=== PATIENT | female | born 1945 | race Caucasian/White ===

== ENCOUNTER 2024-12-30 13:18 | Observation (INO) ==
--- NOTE | 2024-12-30 13:30 | ED.PDOC ---
General ED Provider: Dr. PATRIA LION, DO Chief Complaint: Syncope Stated Complaint: 79-year-old female denies any significant past medical history and a big mother stay brunch and was out for a walk in the sunshine 80 degrees approximately, about 15 minutes and became sweaty felt lightheaded and went to sit down. Family member went to go get a vehicle placed the patient in the vehicle and in the process she became unresponsive for approximately 60 seconds. Awoke on her own. Cannot remember the events leading up to her syncopized no prodrome other than feeling lightheaded but did have a little bit of shortness of breath. When she woke up that was gone she just feels very weak. The weakness is universal no localized weakness no difficulty with speech no change in vision. Fingerstick 108 Time Seen by Provider: 12/30/24 13:20 Mode of Arrival: Wheelchair Information Source: Patient and Family Exam Limitations: No limitations Nursing and Triage Documentation Reviewed and Agree: Yes What is Opioid Naive?: *Opioid Naive implies the patient is not already taking opioids or not chronically receiving opioids on a daily basis. *PRN dosing is not "usually" associated with tolerance. *Patients are at higher risk of over-sedation and aspiration. What is Opioid Tolerant?: *Opioid Tolerance implies less than the expected response to an opioid. *Acquired tolerance is defined by the patient taking 60mg of oral morphine daily (or equianalgesic dose of another opioid) for 1 week or more. *Often associated with chronic pain. *May take more than usual dose to achieve desired pain control. Review of Systems Review Of Systems Constitutional: Reports Diaphoresis and Weakness Eyes: Reports No symptoms; Denies Blindness, Blurred vision or Vision change Ears, Nose, Mouth, Throat: Reports No symptoms Respiratory: Reports Shortness of Breath; Denies Cough, Orthopnea or Wheezing Cardiac: Reports Lightheadedness and Syncope; Denies Chest pain, Edema, Irregular heart rate or Palpitations GI: Reports No symptoms : Reports No symptoms Musculoskeletal: Reports No symptoms Skin: Reports No symptoms Neurological: Reports No symptoms Endocrine: Reports No symptoms Hematologic/Lymphatic: Reports No symptoms All Other Systems: Reviewed and Negative Physical Exam Physical Exam Appearance: Reports Ill-appearing and No pain distress Ill-appearing: Mild Pain Distress: None Eyes: Reports RADHA, EOMI and Conjunctiva clear Neck: Supple Respiratory: Reports Airway patent, Breath sounds clear and Breath sounds equal Cardiovascular: Reports RRR, Pulses normal and No rub GI/: Reports Soft, Nontender and No masses Musculoskeletal: Reports Normal strength, ROM intact and No edema Skin: Reports Warm and Dry Neurological: Reports Sensation intact, Motor intact, Cranial nerves intact, Alert and Oriented Interpretation EKG Interpretation EKG Interpretation By: ED Physician (Twelve-lead EKG is read by me shortly after obtaining sinus rate of 83 with normal axis and intervals there is some motion artifact but otherwise no evidence of acute ischemia or infarct no STEMI) Time of EKG #1: 13:33 EKG Interpretation By: ED Physician (Repeat twelve-lead EKG as read by me shortly after obtaining sinus rate of 77 with normal axis and intervals no longer with any motion artifact some T wave flattening in the inferior and septal leads but otherwise no evidence of acute ischemia or infarct no STEMI) Time of EKG #2: 14:30 Rate: Normal Re-Evaluation Re-Evaluation Time of Re-Evaluation: 14:18 Additional Comments: Informed by nursing the patient has some mild nausea chest pressure will give Zofran repeat EKG Re-Evaluation Time of Re-Evaluation: 17:34 Status: Improved Vital Signs Stable: Yes Appearance: NAD Neuro: Alert and Oriented X3 CV: RRR Additional Comments: Patient's repeat troponin was negative, patient CT of the abdomen concerning for possible colitis CT of the chest did not show PE however it did show possible infectious process. That with the elevated lactate we will initiate treatment for community-acquired pneumonia. There was also some concern of four-chamber dilated cardiomyopathy on CT. Patient's troponin and BNP are negative this could be a remnant of patient's prior bilateral PE. I did discuss this case with the admitting provider [facility] Boykin who will accept the patient for observation plans to get echo in the morning. With the patient's advanced age I do believe admission at this point is appropriate During the patients stay in the Emergency Department, and after a physical exam focused on the patients chief complaint. I have concluded that the patients condition warrants inpatient admission/observation at this time. This decision was made in conjunction with testing done in the ED and after discussing the need for admission with the patient and any family present. This decision was made in conjunction with any testing done, physical exam and information provided by the patient and any family present. I took into consideration discharge but feel that either the patients condition, social supports, access to aftercare, and/or safety justify admission at this time. I have discussed this case with the admitting physician Care was assumed by admitting provider at the time the admission request was placed. I was available for emergencies after that point or if specifically identified here: none This chart was completed using voice recognition dictation software. Please excuse any errors of boot repairer including grammatical, punctuation and spelling errors. Please contact me with any questions regarding this chart Critical Care Note Critical Care Note Total Critical Care Time (mins): 45 Comments: I was called to the bedside for urgent evaluation of the patient for an apparent life-threatening event. I arrived to find the patient post syncope During my initial evaluation I found the patient to be critically Ill and in need of my immediate attention to prevent further deterioration of their condition More than one body system was considered at risk with todays visit. The following are the primary systems identified: Cardiac, metabolic, GI, infectious During the patients ED visit I repeated re-evaluated the patient and their clinical condition reviewed laboratory testing and radiology images and intervening when needed. As a result of the patients clinical condition and presenting problem I arranged for admission for further workup The total amount of my Critical Care time during the patients course in the ED was a minimum of 45 minutes, this excluded any time spent on other services or procedures Course Course 12/30/24 13:58 12/30/24 13:58 Orders, Labs, Meds: Lab Review 12/30/24 12/30/24 12/30/24 13:58 16:00 16:51 WBC 8.46 RBC 3.81 L Hgb 11.4 L Hct 36.5 L MCV 95.8 MCH 29.9 MCHC 31.2 L RDW Coeff of Savita 13.7 Plt Count 228 Immature Gran % (Auto) 0.2 Neut % (Auto) 32.7 L Lymph % (Auto) 56.3 H [place] % (Auto) 8.2 Eos % (Auto) 2.0 Baso % (Auto) 0.6 Neut # (Auto) 2.8 Lymph # (Auto) 4.8 H [place] # (Auto) 0.7 Eos # (Auto) 0.2 Baso # (Auto) 0.1 Immature Gran # (Auto) 0.0 Sodium 143.1 Potassium 3.73 Chloride 107.1 H Carbon Dioxide 21.9 L Anion Gap 17.83 BUN 13.0 Creatinine 0.98 Estimated GFR (MDRD) 54.00 BUN/Creatinine Ratio 13.26 Glucose 108.8 H Lactic Acid 3.12 H Calcium 9.30 Total Bilirubin 0.45 AST 36.2 H ALT 24.1 Alkaline Phosphatase 77.3 Troponin I < 0.012 < 0.012 NT-Pro-B Natriuret Pep 290 Total Protein 7.02 Albumin 3.80 Globulin 3.22 Albumin/Globulin Ratio 1.18 D-Dimer 298.10 Urine Color Yellow Urine Clarity Clear Urine pH 7.0 Ur Specific [place] 1.015 Urine Protein Negative Urine Glucose (UA) Negative Urine Ketones Negative Urine Blood Negative Urine Nitrite Negative Urine Bilirubin Negative Urine Urobilinogen 0.2 Ur Leukocyte Esterase Negative SARS CoV-2 RNA Rapid SUSAN 12/30/24 17:03 WBC RBC Hgb Hct MCV MCH MCHC RDW Coeff of Savita Plt Count Immature Gran % (Auto) Neut % (Auto) Lymph % (Auto) [place] % (Auto) Eos % (Auto) Baso % (Auto) Neut # (Auto) Lymph # (Auto) [place] # (Auto) Eos # (Auto) Baso # (Auto) Immature Gran # (Auto) Sodium Potassium Chloride Carbon Dioxide Anion Gap BUN Creatinine Estimated GFR (MDRD) BUN/Creatinine Ratio Glucose Lactic Acid Calcium Total Bilirubin AST ALT Alkaline Phosphatase Troponin I NT-Pro-B Natriuret Pep Total Protein Albumin Globulin Albumin/Globulin Ratio D-Dimer Urine Color Urine Clarity Urine pH Ur Specific [place] Urine Protein Urine Glucose (UA) Urine Ketones Urine Blood Urine Nitrite Urine Bilirubin Urine Urobilinogen Ur Leukocyte Esterase SARS CoV-2 RNA Rapid SUSAN Negative Orders Category Date Time Status PLACE PATIENT OBSERVATION .TO [facility] (MONITORED BED ADMISSION 12/30/24 17:21 Active ) PLACE PATIENT OBSERVATION .TO MEDSUR[facility] (MONITORED BED ADMISSION 12/30/24 17:31 Active ) ECHOCARDIOGRAM 2D-M MODE Routine CARDIO 12/30/24 17:21 Ordered EKG-(ED ONLY) Stat CARDIO 12/30/24 13:25 Completed EKG-(ED ONLY) Stat CARDIO 12/30/24 14:18 Completed ACTIVITY .Up With Assistance CARE 12/30/24 17:21 Active GIVE HS SNACK 2100 CARE 12/30/24 17:22 Active INTAKE & OUTPUT Q8HR CARE 12/30/24 17:21 Active NPO REMINDER: IMAGING ONCE CARE 12/30/24 14:39 Completed ORTHOSTATIC VITAL SIGNS ONCE CARE 12/30/24 18:00 Active TELEMETRY MONITORING TELE CARE 12/30/24 17:21 Active TELEMETRY MONITORING TELE CARE 12/30/24 17:31 Active VITAL SIGNS Q4HR CARE 12/30/24 17:22 Active CLEAR LIQUID DIET DIETARY 12/30/24 Dinner Ordered HS SNACK DIETARY 12/30/24 Dinner Ordered Blood Sugar [ED ACCUCHECK ASSESSMENT] .ONCE EMERGENCY 12/30/24 13:25 Active CBC W/ AUTO DIFF DAILY@0600 LAB 12/31/24 06:00 Ordered CBC W/ AUTO DIFF DAILY@0600 LAB 01/01/25 06:00 Ordered CBC W/ AUTO DIFF Stat LAB 12/30/24 13:58 Completed CMP [COMPREHENSIVE METABOLIC PANEL] Stat LAB 12/30/24 13:58 Completed COMPREHENSIVE METABOLIC PANEL DAILY@0600 LAB 12/31/24 06:00 Ordered COMPREHENSIVE METABOLIC PANEL DAILY@0600 LAB 01/01/25 06:00 Ordered COVID [SARS COV-2 RNA RAPID SUSAN] Stat LAB 12/30/24 17:03 Completed D-DIMER Stat LAB 12/30/24 13:58 Completed LACTIC ACID Stat LAB 12/30/24 13:58 Completed LACTIC ACID Stat LAB 12/30/24 17:14 Ordered PROBNP ED [NT-PROBNP(ED)] Stat LAB 12/30/24 13:58 Completed TROPONIN I Stat LAB 12/30/24 13:58 Completed TROPONIN I Stat LAB 12/30/24 16:51 Completed TROPONIN I Timed LAB 12/30/24 20:00 Ordered UA [URINALYSIS C & S IF INDICATED] Stat LAB 12/30/24 16:00 Completed Acetaminophen [Tylenol] Meds 12/30/24 17:21 Ordered 650 mg PO Q4H PRN Azithromycin [Zithromax] Meds 12/30/24 17:01 Discontinued 500 mg PO ONCE ONE Ceftriaxone 1 gm Vial [Rocephin 1 gm Vial] Meds 12/30/24 17:01 Discontinued 1 gm IVP ONCE ONE Diphenhydramine Inj [Benadryl] Meds 12/30/24 15:24 Discontinued 25 mg IVP ONCE STA Iodixanol [Visipaque 320 mg/ml 100Ml] Meds 12/30/24 14:55 Discontinued 100 ml IVP ONCE ONE Metoclopramide HCl [Reglan] Meds 12/30/24 15:24 Discontinued 10 mg IVP ONCE STA Metoclopramide HCl [Reglan] Meds 12/30/24 17:21 Ordered 5 mg IVP Q6H PRN Ondansetron HCl/Pf [Zofran Sdv] Meds 12/30/24 14:18 Discontinued 4 mg IVP ONCE STA Ondansetron HCl/Pf [Zofran Sdv] Meds 12/30/24 17:21 Ordered 4 mg IVP Q6H PRN Pantoprazole Sodium [Protonix] Meds 12/31/24 09:00 Ordered 40 mg IVP DAILY Sodium Chloride 0.9% [Sodium Chloride] 1,000 ml Meds 12/30/24 17:30 Ordered IV 100 mls/hr Sodium Chloride 0.9% [Sodium Chloride] 1,000 ml Meds 12/30/24 13:25 Discontinued IV BOLUS RESUSCITATION STATUS Routine OTHERS 12/30/24 17:31 Ordered CHEST, 1V AP ONLY Stat RADS 12/30/24 13:[address] ABDOMEN/PELVIS W CONTRAST Stat RADS 12/30/24 14:39 Completed CTA CHEST PE PROTOCOL Stat RADS 12/30/24 14:39 Completed Medications Generic Name Dose Route Start Last Admin Trade Name Freq PRN Reason Stop Dose Admin Acetaminophen 650 mg 12/30/24 17:21 Acetaminophen 325 Mg Tablet PO Q4H PRN Mild Pain Sodium Chloride 1,000 mls @ 100 mls/hr 12/30/24 17:30 Sodium Chloride IV .Q10H NANCY Metoclopramide HCl 5 mg 12/30/24 17:21 Metoclopramide Hcl 10 Mg/2 Ml IVP Q6H PRN Nausea / Vomiting Ondansetron HCl 4 mg 12/30/24 17:21 Ondansetron Hcl/Pf 4 Mg/2 Ml Sdv IVP Q6H PRN Nausea / Vomiting Pantoprazole Sodium 40 mg 12/31/24 09:00 Pantoprazole Sodium 40 Mg Vial IVP DAILY NANCY Discontinued Medications Generic Name Dose Route Start Last Admin Trade Name Freq PRN Reason Stop Dose Admin Azithromycin 500 mg 12/30/24 17:01 12/30/24 17:15 Azithromycin 250 Mg Tablet PO 12/30/24 17:02 500 mg ONCE ONE Administration Ceftriaxone Sodium 1 gm 12/30/24 17:01 12/30/24 17:16 Ceftriaxone 1 Gm Vial IVP 12/30/24 17:02 1 gm ONCE ONE Administration Diphenhydramine HCl 25 mg 12/30/24 15:24 12/30/24 15:39 Diphenhydramine Inj 50 Mg/Ml Vial IVP 12/30/24 15:25 25 mg ONCE STA Administration Sodium Chloride 1,000 mls @ 1,000 mls/hr 12/30/24 13:25 12/30/24 17:13 Sodium Chloride IV 12/30/24 14:24 Infused BOLUS ONE Infusion Iodixanol 100 ml 12/30/24 14:55 12/30/24 14:56 Iodixanol 320 Mg/Ml 100ml IVP 12/30/24 14:56 100 ml ONCE ONE Administration Metoclopramide HCl 10 mg 12/30/24 15:24 12/30/24 15:39 Metoclopramide Hcl 10 Mg/2 Ml IVP 12/30/24 15:25 10 mg ONCE STA Administration Ondansetron HCl 4 mg 12/30/24 14:18 12/30/24 14:24 Ondansetron Hcl/Pf 4 Mg/2 Ml Sdv IVP 12/30/24 14:19 4 mg ONCE STA Administration Shortly after interviewing and examining the patient, treatment was initiated. Orders were placed for appropriate testing and treatment specific to my findings, appropriate guidelines and the patients complaint (please see physician order section of this chart). Based on the patients chief complaint, and information gathered so far, the following diagnosis were considered. This list is not exhaustive. Intoxication, infectious causes such as UTI, Pneumonia, or BLIND AIDE infection. Metabolic; such as hyper/hypoglycemia, electrolyte abnormalities, hepatic encephalopathy. BLIND AIDE such as intracranial bleed, seizure, delirium, or CVA. Cardiac; AMI, hypotension, cardiac failure. The patient had a syncopal episode. In most cases the reasons are [id number], but this is not true for all patients, To evaluate the patients risk of more concerning causes of syncope I considered several things. Below are the items I took into considerations and some of the clinical tools I used The [place] Syncope Rule (SFSR) is a simple tool for evaluating the risk of adverse outcomes in patient who present with fainting or syncope. Any positive response warrants further evaluation C - History of congestive heart failure H - Hematocrit < 30% E - Abnormal ECG S - Shortness of breath S - Triage systolic blood pressure < 90 The most concerning cause of syncope is cardiovascular syncope. Below are Risk Factors for Cardiovascular Syncope Extremes of age Active Coronary disease or syncope accompanied by chest pain, palpitations or shortness of breath Syncope during exertional activity or exercise An abnormal electrocardiogram (a common test to check for abnormal heart rhythms) including prolonged QT syndrome, WPW [place] Syndrome, joaquín or tachyarrhythmias, all of which were considered when reviewing the patients EKG with todays visit Vital Signs: Temp Pulse Resp BP Pulse Ox 12/30/24 13:25 97.6 F 82 20 101/54 L 97 Discharge Plan Discharge Patient Disposition: PLACED OBSERVATION Discharge Problem: Syncope, Pneumonia Did you review [place] [employer]PECTOR for ALL controlled substances?: Not Applicable ED Provider: PATRIA LION
[2024-12-30 14:01] LABS: BASOPHILS # (AUTO) 0.1 K/uL (0-0.2); BASOPHILS % (AUTO) 0.6 % (0.0-3.0); EOSINOPHILS # (AUTO) 0.2 K/ul (0.0-0.7); HEMATOCRIT 36.5 % (37.0-47.0); HEMOGLOBIN 11.4 g/dl (12.0-16.0); IMMATURE GRANULOCYTE % (AUTO) 0.2 % (0.0-5.0); LYMPHOCYTES # (AUTO) 4.8 K/uL (0.60-3.4); LYMPHOCYTES % (AUTO) 56.3 (10.0-50.0); MEAN CORPUSCULAR HEMOGLOBIN 29.9 pg (27.0-31.0); MEAN CORPUSCULAR HGB CONC 31.2 (31.8-35.4); MEAN CORPUSCULAR VOLUME 95.8 fl (81.0-99.0); MONOCYTES # (AUTO) 0.7 K/uL (0.4-2.0); MONOCYTES % (AUTO) 8.2 (0-10); NEUTROPHILS # (AUTO) 2.8 K/ul (2.0-6.9); NEUTROPHILS % (AUTO) 32.7 % (42.2-75.2); PLATELET COUNT 228 10^3/uL (140-440); RDW COEFFICIENT OF VARIATION 13.7 % (11.6-14.8); RED BLOOD COUNT 3.81 10^6/ul (4.20-5.40); WHITE BLOOD COUNT 8.46 K/ul (4.6-10.2)
[2024-12-30 14:12] LABS: ALANINE AMINOTRANSFERASE 24.1 U/L (0-35); ALKALINE PHOSPHATASE 77.3 U/L (53-141); ASPARTATE AMINO TRANSFERASE 36.2 U/L (14-36); BILIRUBIN,TOTAL 0.45 mg/dL (0.2-1.3); CARBON DIOXIDE 21.9 mmol/L (22-30.0); CHLORIDE 107.1 mmol/L (98-107); CREATININE 0.98 mg/dL (0.60-1.30); GLUCOSE 108.8 mg/dL (74-106); POTASSIUM 3.73 mmol/L (3.5-5.1); SODIUM 143.1 mmol/L (134.5-145); TOTAL PROTEIN 7.02 g/dL (6.3-8.2)
[2024-12-30] MEDS: SODIUM CHLORIDE 1,000 ML IV ONE (14:15)
[2024-12-30] MEDS: ZOFRAN SDV IVP STA (14:24)
[2024-12-30 14:29] LABS: TROPONIN I < 0.012 ng/ml (0.0000-0.120)
--- NOTE | 2024-12-30 14:49 | DI ---
EXAM: CHEST RADIOGRAPH (1 VIEW) TECHNIQUE: Frontal Chest Radiograph. HISTORY: Syncope. COMPARISON: None FINDINGS: Lines, Tubes, Devices: None Lungs and Pleura: No focal consolidation. No pleural effusion. No pneumothorax. No pulmonary edema . Multiple calcified granulomas. Biapical pleural parenchymal scarring, left greater than right. Cardiomediastinum: Normal cardiomediastinal silhouette. No aortic calcifications. Bones/Soft Tissues: No acute osseous abnormality. No soft tissue abnormality. Upper Abdomen: Within normal limits. IMPRESSION: No acute radiographic abnormality.
[2024-12-30] MEDS: VISIPAQUE 320 MG/ML 100ML IVP ONE (14:56)
[2024-12-30] MEDS: BENADRYL IVP STA (15:39)
[2024-12-30] MEDS: REGLAN IVP STA (15:39)
[2024-12-30 16:10] LABS: BILIRUBIN,URINE Negative (NEGATIVE); CLARITY,URINE Clear (CLEAR); COLOR,URINE Yellow (YELLOW); GLUCOSE, URINE (UA) Negative (NEGATIVE); KETONES,URINE Negative (NEGATIVE); LEUKOCYTE ESTERASE ,URINE Negative (NEGATIVE); NITRITE,URINE Negative (NEGATIVE); PROTEIN,URINE Negative (NEGATIVE); URINE, BLOOD Negative (NEGATIVE); UROBILINOGEN,URINE 0.2 (0.2)
--- NOTE | 2024-12-30 16:37 | CT ---
EXAM: CT ABDOMEN PELVIS WITH CONTRAST HISTORY: Syncope, elevated, lactic gases COMPARISON: None. TECHNIQUE: Serial axial images of the abdomen pelvis were performed after Omnipaque IV contrast was administered. FINDINGS: Please see report from CTA chest obtained at the same time for description of findings in the lower c hest. Atherosclerotic plaque in the abdominal aorta and branches. The superior mesenteric artery is patent . The celiac artery is patent. The renal arteries are patent. The inferior mesenteric artery is pa tent. No acute process involving the liver, pancreas or spleen. No hydronephrosis. Simple right renal cyst. The adrenal glands are normal. There is question of mild wall thickening versus under distension at the gastroduodenal junction. Di verticulosis. No findings of acute diverticulitis. Suspected under distension of the proximal colon . No dilated loops of small bowel. The appendix is not identified. No pneumatosis. No portal venou s gas or mesenteric venous gas. No acute process in the pelvis. Question of bladder prolapse or ureterocele. Degenerative changes to the spine, pelvis and hips IMPRESSION: Question of wall thickening at the gastroduodenal junction versus under distension. Correlate with e ndoscopy as warranted. Suspected under distension of the proximal colon versus colitis. Question of ureterocele or bladder prolapse. Clinical follow-up. Please see above description and additional findings. All CT scans are performed using dose optimization techniques as appropriate to the performed exam an d include at least one of the following: Automated exposure control, adjustment of the mA and/or kV according t o size, and the use of iterative reconstruction technique.
--- NOTE | 2024-12-30 16:49 | CT ---
EXAM: CHEST CTA WITH CONTRAST (PULMONARY ARTERY) HISTORY: Syncope. History of pulmonary embolism. COMPARISON: Chest radiograph 12/30/2024. TECHNIQUE: CTA acquisition of the chest from the thoracic inlet to the upper abdomen following IV con trast administration. IV Contrast: Yes. 3D/MIP/VR images: Provided. FINDINGS: PULMONARY ARTERY: The submitted images are limited by patient respiratory motion artifact and Cedar beam hardening artifa ct from contrast in the superior vena cava. There is misregistration artifact involve the pulmonary a rteries. No discrete intraluminal filling defect within the main pulmonary artery or most proximal po rtions of the right and left pulmonary arteries. No definite filling defects along the lobar/interlob ar branches. Limited assessment of the more peripheral (segmental/subsegmental) branches due to motio n artifact without definite filling defect. No abnormal widening of the main pulmonary artery. Ratio of right ventricular diameter to left ventricular diameter is greater than 1.0 and correlation for si gns of right-sided heart insufficiency is recommended. No definite evidence of acute right ventricula r strain. LINES/DEVICES: None. HEART: Moderate cardiomegaly with 4 chamber enlargement though with predominant right-sided cardiac e nlargement. Minimal extension of contrast into the inferior vena cava could be related to the strengt h to the injection though correlation for signs of right-sided heart insufficiency is recommended. Ec hocardiogram can be considered as clinically warranted. No significant pericardial fluid or thickenin g. THORACIC AORTA: Limited assessment due to timing of contrast. Normal in caliber. Moderate vascular calcifications. LYMPH NODES: Calcified mediastinal and left hilar lymph nodes related to old granulomatous disease. A dditional subcentimeter lymph nodes. MEDIASTINUM: No mass, fluid collection or pneumomediastinum. Mild distention of the esophagus with fl uid with air fluid level approximately. Moderate distention of the stomach with fluid and ingested ma terial. PLEURA: No pleural effusion or abnormal pleural thickening. No pneumothorax. AIRWAYS: Opacification of right lower lobe bronchi may related to mucous plugging or secretions. Mild bronchial wall thickening concerning for sequela of bronchitis. LUNGS: Emphysematous changes of the lungs. Mild dependent atelectasis. Groundglass opacities with mos aic attenuation may be related to sequela of small vessel or small airway disease. Dense consolidatio n measuring 4.9 x 4.6 x 1. 7 cm in the left lung apex with adjacent bronchiectasis represent scarring at that level with pleural calcifications. Underlying neoplastic process is not entirely excluded on this study. Calcified granulomas largest at the level of the left upper lobe /lingula. THYROID: Grossly unremarkable. CHEST WALL: Grossly unremarkable. BONES: Degenerative changes of the spine. No acute compression fracture. There is diffuse demineraliz ation. Chronic pain deformity of the body of the stomach favors sequela of an old fracture. No adjace nt soft tissue swelling. Hypertrophic degenerative changes of the sternoclavicular joints bilaterally . UPPER ABDOMEN: Fluid distention of the stomach and distal esophagus. Questionable wall thickening jose r ng the proximal duodenum. Dedicated CT imaging of the abdomen and pelvis was performed and that repor t will be dictated separately. IMPRESSION: No definite evidence of an acute pulmonary embolism. Technically limited study due to motion artifact as detailed above. No abnormal dilation of the main pulmonary artery. Cardiomegaly with 4 chamber enlargement though with predominant right-sided enlargement. Abnormal rat io of right ventricular diameter to left ventricular diameter and correlation for signs of right-side d heart insufficiency is recommended. No definite evidence of acute right ventricular strain. Conside r echocardiogram as clinically warranted. Mosaic attenuation of the lungs could be seen in the setting of small vessel or small airway disease. Mild dependent atelectasis bilaterally. Dense consolidation and possible scarring with soft tissue thickening and bronchiectasis in the left lung apex. Overlying pleural calcifications. Underlying neoplastic process is not excluded on the bas is of this study and correlation with any prior imaging is recommended. This can be further assessed with PET CT. Bronchitis. Opacified bronchi in the lower lobes may related to secretions/mucous plugging. Old granulomatous disease. Demineralization. Chronic deformity of the sternum without acute osseous injury at that site. Degener ative changes. Mild distention of the esophagus with fluid with moderate distention of the stomach. Question of some wall thickening along the proximal duodenum. A clinically for signs of gastritis/esophagitis or duod enitis. Please see the separately dictated CT of the abdomen and pelvis report. Please see the separately All CT scans are performed using dose optimization techniques as appropriate to the performed exam an d include at least one of the following: Automated exposure control, adjustment of the mA and/or kV according t o size, and the use of iterative reconstruction technique.
[2024-12-30] MEDS: ZITHROMAX PO ONE (17:15)
[2024-12-30] MEDS: ROCEPHIN 1 GM VIAL IVP ONE (17:16)
[2024-12-30 17:21] LABS: SARS COV-2 RNA RAPID NAAT NEGATIVE (NEGATIVE)
[2024-12-30] MEDS ORDERED: ZOFRAN SDV IVP PRN (17:21)
[2024-12-30] MEDS ORDERED: TYLENOL PO PRN (17:21)
[2024-12-30] MEDS ORDERED: REGLAN IVP PRN (17:21)
[2024-12-30] MEDS: SODIUM CHLORIDE 1,000 ML IV SCH (18:35)
[2024-12-30 18:38] VITALS: BMI 28.0
[2024-12-30] MEDS: WELCHOL PO SCH (20:43)
[2024-12-30 20:56] VITALS: RESP 16
[2024-12-30] MEDS: XARELTO PO SCH (21:01)
[2024-12-31 05:38] LABS: BASOPHILS % (AUTO) 0.4 % (0.0-3.0); EOSINOPHILS # (AUTO) 0.2 K/ul (0.0-0.7); EOSINOPHILS % (AUTO) 2.1 % (0.0-7.0); HEMATOCRIT 33.5 % (37.0-47.0); HEMOGLOBIN 10.2 g/dl (12.0-16.0); IMMATURE GRANULOCYTE % (AUTO) 0.3 % (0.0-5.0); LYMPHOCYTES # (AUTO) 2.7 K/uL (0.60-3.4); LYMPHOCYTES % (AUTO) 35.5 (10.0-50.0); MEAN CORPUSCULAR HEMOGLOBIN 29.7 pg (27.0-31.0); MEAN CORPUSCULAR HGB CONC 30.4 (31.8-35.4); MEAN CORPUSCULAR VOLUME 97.4 fl (81.0-99.0); MONOCYTES # (AUTO) 0.6 K/uL (0.4-2.0); MONOCYTES % (AUTO) 8.3 (0-10); NEUTROPHILS % (AUTO) 53.4 % (42.2-75.2); PLATELET COUNT 204 10^3/uL (140-440); RDW COEFFICIENT OF VARIATION 13.6 % (11.6-14.8); RED BLOOD COUNT 3.44 10^6/ul (4.20-5.40); WHITE BLOOD COUNT 7.47 K/ul (4.6-10.2)
[2024-12-31 05:53] LABS: ALANINE AMINOTRANSFERASE 21.1 U/L (0-35); ALBUMIN 3.11 g/dL (3.5-5.0); ALKALINE PHOSPHATASE 67.5 U/L (53-141); BILIRUBIN,TOTAL 0.3 mg/dL (0.2-1.3); BLOOD UREA NITROGEN 9.9 mg/dL (7-17); CALCIUM 8.3 mg/dL (8.4-10.2); CARBON DIOXIDE 28.7 mmol/L (22-30.0); CHLORIDE 109.8 mmol/L (98-107); CREATININE 0.8 mg/dL (0.60-1.30); POTASSIUM 4.05 mmol/L (3.5-5.1); TOTAL PROTEIN 6.19 g/dL (6.3-8.2)
[2024-12-31] MEDS: PROTONIX IVP SCH (08:26)
[2024-12-31] MEDS ORDERED: XARELTO PO SCH (09:00)
[2024-12-31 10:34] VITALS: BP 134/72; PULSE 68; TEMP 97.5
--- NOTE | 2024-12-31 12:32 | PCM.SS ---
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 Patient states she was celebrating Mother's Day with a nice lunch with her family. She did admit to having one mariana. She states they went for a walk since it was a beautiful day out. She felt hot and nauseated. She felt the need to sit down and rest. A family member went and retrieved the truck. They helped her inside. Once inside, she passed out. Son at bedside state s she was "out cold" for about a minute and a half. She then came to on her own. She was oriented and realized they were driving to the ER. She recalls these events. No seizure like activity. In the ER, work up overall negative. CTA done showing no PE. Trops negative. EKG unremarkable. Orthostats negative. Labs unremarkable other than lactic acid mildly high which improved following fluids. Admitted to med surg. Today she is feeling well. Denies any deficits. No pre syncopal episodes. Vitals stable. Has been on tele overnight. Echo today overall unremarkable per Dr. Zina Walker. We discussed her CTA findings of the right apex consolidation/soft tissue thickening. Seems less likely pneumonia given normal wbc count, no fever, and no respiratory symptoms. Advised her to have close f/u with pcp for further investigation to r/o worrisome etiology. Also her CT abd/pelvis showed questionable colitis. Patient denies abd pain, fever, diarrhea. We discussed findings supportive of gastritis, she states she does often have acid reflux and takes pepcid. We discussed adding prilosec, nexium, etc if needed for better symptom control. Overall patient has had a negative work up related to her syncopal event, could have been vasovagal related. Will send on 1 week holter to r/o arrhythmia not caught on tele here, f/u with pcp. PMFSH Medical History History of breast cancer Z85.3 - Personal history of malignant neoplasm of breast (ICD-10) Hyperlipidemia E78.5 - Hyperlipidemia, unspecified (ICD-10) DVT (deep venous thrombosis) I82.409 - Acute embolism and thrombosis of unspecified deep veins of unspecified lower extremity (ICD-10) Pulmonary embolism I26.99 - Other pulmonary embolism without acute cor pulmonale (ICD-10) Social History Smoking and tobacco status: Never smoker Medications Mecications: Medications at Discharge (Home Meds & RX) colesevelam 625 mg tablet 625 mg PO BID 12/30/24 rivaroxaban 15 mg tablet (Xarelto) 15 mg PO DAILY 12/30/24 Allergies Allergies Allergy/AdvReac Type Severity Reaction Status Date / Time Sulfa (Sulfonamide AdvReac Rash Verified 12/30/24 13:32 Antibiotics) Review of Systems Constitutional: Denies Fever or Weakness Head: Reports Normocephalic and Atraumatic Cardiovascular: Reports Syncope; Denies Chest pain, Edema or Palpitations Respiratory: Denies Cough, Shortness of air or Wheeze Gastrointestinal: Reports Nausea; Denies Vomiting, Diarrhea, Abdominal pain or Melena Genitourinary: Denies Dysuria or Frequency Neurological: Reports Syncope and Loss of Conciousness; Denies Headache, Dizziness or Weakness Physical Examination Appearance: Positive Well-appearing, Well-nourished, No Apparent Distress and Alert and Oriented x3 Head: Positive Normocephalic and Atraumatic Neck: Positive Supple and Trachea Midline Heart: Positive RRR Respiratory: Positive Breath Sounds Clear, Bilaterally and Respirations Nonlabored; Negative Crackles, Rhonchi, Wheezes or Retractions GI/: Positive Soft, Nontender, Bowel sounds normal and No Distention Extremities: Positive Pedal Pulses Palpable Bilaterally; Negative Edema Neurological: Positive Cranial nerves intact, Motor Intact, Alert and Oriented Psychiatric: Positive Normal Judgement, Normal Insight, Affect Appropriate and Mood Appropriate Vital Signs (Last 4 Hours) Vital Signs Last 4 Hours: Vital Signs: Last 4 Hours 12/31/24 09:00 12/31/24 10:00 12/31/24 10:00 Temperature 97.5 F L Temperature Source Temporal Artery Scan Pulse Rate 68 Respiratory Rate 16 Blood Pressure 134/72 Blood Pressure Mean 92 Blood Pressure Location Left Arm Blood Pressure Position Supine O2 Sat by Pulse Oximetry 97 Oxygen Delivery Method Room Air Room Air Room Air Labs This Visit Labs This Visit: Labs This Visit 12/30/24 12/30/24 12/30/24 13:58 16:00 16:51 WBC 8.46 RBC 3.81 L Hgb 11.4 L Hct 36.5 L MCV 95.8 MCH 29.9 MCHC 31.2 L RDW Coeff of Savita 13.7 Plt Count 228 Immature Gran % (Auto) 0.2 Neut % (Auto) 32.7 L Lymph % (Auto) 56.3 H [place] % (Auto) 8.2 Eos % (Auto) 2.0 Baso % (Auto) 0.6 Neut # (Auto) 2.8 Lymph # (Auto) 4.8 H [place] # (Auto) 0.7 Eos # (Auto) 0.2 Baso # (Auto) 0.1 Immature Gran # (Auto) 0.0 Sodium 143.1 Potassium 3.73 Chloride 107.1 H Carbon Dioxide 21.9 L Anion Gap 17.83 BUN 13.0 Creatinine 0.98 Estimated GFR (MDRD) 54.00 BUN/Creatinine Ratio 13.26 Glucose 108.8 H Lactic Acid 3.12 H Calcium 9.30 Total Bilirubin 0.45 AST 36.2 H ALT 24.1 Alkaline Phosphatase 77.3 Troponin I < 0.012 < 0.012 NT-Pro-B Natriuret Pep 290 Total Protein 7.02 Albumin 3.80 Globulin 3.22 Albumin/Globulin Ratio 1.18 D-Dimer 298.10 Urine Color Yellow Urine Clarity Clear Urine pH 7.0 Ur Specific [place] 1.015 Urine Protein Negative Urine Glucose (UA) Negative Urine Ketones Negative Urine Blood Negative Urine Nitrite Negative Urine Bilirubin Negative Urine Urobilinogen 0.2 Ur Leukocyte Esterase Negative SARS CoV-2 RNA Rapid SUSAN 12/30/24 12/30/24 12/30/24 17:03 17:36 20:11 WBC RBC Hgb Hct MCV MCH MCHC RDW Coeff of Savita Plt Count Immature Gran % (Auto) Neut % (Auto) Lymph % (Auto) [place] % (Auto) Eos % (Auto) Baso % (Auto) Neut # (Auto) Lymph # (Auto) [place] # (Auto) Eos # (Auto) Baso # (Auto) Immature Gran # (Auto) Sodium Potassium Chloride Carbon Dioxide Anion Gap BUN Creatinine Estimated GFR (MDRD) BUN/Creatinine Ratio Glucose Lactic Acid 2.04 D Calcium Total Bilirubin AST ALT Alkaline Phosphatase Troponin I < 0.012 NT-Pro-B Natriuret Pep Total Protein Albumin Globulin Albumin/Globulin Ratio D-Dimer Urine Color Urine Clarity Urine pH Ur Specific [place] Urine Protein Urine Glucose (UA) Urine Ketones Urine Blood Urine Nitrite Urine Bilirubin Urine Urobilinogen Ur Leukocyte Esterase SARS CoV-2 RNA Rapid SUSAN Negative 12/31/24 05:26 WBC 7.47 RBC 3.44 L Hgb 10.2 L Hct 33.5 L MCV 97.4 MCH 29.7 MCHC 30.4 L RDW Coeff of Savita 13.6 Plt Count 204 Immature Gran % (Auto) 0.3 Neut % (Auto) 53.4 Lymph % (Auto) 35.5 [place] % (Auto) 8.3 Eos % (Auto) 2.1 Baso % (Auto) 0.4 Neut # (Auto) 4.0 Lymph # (Auto) 2.7 [place] # (Auto) 0.6 Eos # (Auto) 0.2 Baso # (Auto) 0.0 Immature Gran # (Auto) 0.0 Sodium 145.0 Potassium 4.05 Chloride 109.8 H Carbon Dioxide 28.7 Anion Gap 10.55 BUN 9.9 Creatinine 0.80 Estimated GFR (MDRD) 69.00 BUN/Creatinine Ratio 12.37 Glucose 92.0 Lactic Acid Calcium 8.30 L Total Bilirubin 0.30 AST 31.0 ALT 21.1 Alkaline Phosphatase 67.5 Troponin I NT-Pro-B Natriuret Pep Total Protein 6.19 L Albumin 3.11 L Globulin 3.08 Albumin/Globulin Ratio 1.00 D-Dimer Urine Color Urine Clarity Urine pH Ur Specific [place] Urine Protein Urine Glucose (UA) Urine Ketones Urine Blood Urine Nitrite Urine Bilirubin Urine Urobilinogen Ur Leukocyte Esterase SARS CoV-2 RNA Rapid SUSAN Imaging Imaging: EXAM: CHEST CTA WITH CONTRAST (PULMONARY ARTERY) HISTORY: Syncope. History of pulmonary embolism. COMPARISON: Chest radiograph 12/30/2024. TECHNIQUE: CTA acquisition of the chest from the thoracic inlet to the upper abdomen following IV contrast administration. IV Contrast: Yes. 3D/MIP/VR images: Provided. FINDINGS: PULMONARY ARTERY:The submitted images are limited by patient respiratory motion artifact and [place] beam hardening artifact from contrast in the superior vena cava. There is misregistration artifact involve the pulmonary arteries. No discrete intraluminal filling defect within the main pulmonary artery or most proximal portions of the right and left pulmonary arteries. No definite filling defects along the lobar/interlobar branches. Limited assessment of the more peripheral (segmental/subsegmental) branches due to motion artifact without definite filling defect. No abnormal widening of the main pulmonary artery. Ratio of right ventricular diameter to left ventricular diameter is greater than 1.0 and correlation for signs of right-sided heart insufficiency is recommended. No definite evidence of acute right ventricular strain. LINES/DEVICES: None. HEART: Moderate cardiomegaly with 4 chamber enlargement though with predominant right-sided cardiac enlargement. Minimal extension of contrast into the inferior vena cava could be related to the strength to the injection though correlation for signs of right-sided heart insufficiency is recommended. Echocardiogram can be considered as clinically warranted. No significant pericardial fluid or thickening. THORACIC AORTA: Limited assessment due to timing of contrast. Normal in caliber. Moderate vascular calcifications. LYMPH NODES: Calcified mediastinal and left hilar lymph nodes related to old granulomatous disease. Additional subcentimeter lymph nodes. MEDIASTINUM: No mass, fluid collection or pneumomediastinum. Mild distention of the esophagus with fluid with air fluid level approximately. Moderate distention of the stomach with fluid and ingested material. PLEURA: No pleural effusion or abnormal pleural thickening. No pneumothorax. AIRWAYS: Opacification of right lower lobe bronchi may related to mucous plugging or secretions. Mild bronchial wall thickening concerning for sequela of bronchitis. LUNGS: Emphysematous changes of the lungs. Mild dependent atelectasis. Groundglass opacities with mosaic attenuation may be related to sequela of small vessel or small airway disease. Dense consolidation measuring 4.9 x 4.6 x 1. 7 cm in the left lung apex with adjacent bronchiectasis represent scarring at that level with pleural calcifications. Underlying neoplastic process is not entirely excluded on this study. Calcified granulomas largest at the level of the left upper lobe /lingula. THYROID: Grossly unremarkable. CHEST WALL: Grossly unremarkable. BONES: Degenerative changes of the spine. No acute compression fracture. There is diffuse demineralization. Chronic pain deformity of the body of the stomach favors sequela of an old fracture. No adjacent soft tissue swelling. Hype rtrophic degenerative changes of the sternoclavicular joints bilaterally. UPPER ABDOMEN: Fluid distention of the stomach and distal esophagus. Questionable wall thickening along the proximal duodenum. Dedicated CT imaging of the abdomen and pelvis was performed and that report will be dictated separately. IMPRESSION: No definite evidence of an acute pulmonary embolism. Technically limited study due to motion artifact as detailed above. No abnormal dilation of the main pulmonary artery. Cardiomegaly with 4 chamber enlargement though with predominant right-sided enlargement. Abnormal ratio of right ventricular diameter to left ventricular diameter and correlation for signs of right-sided heart insufficiency is recommended. No definite evidence of acute right ventricular strain. Consider echocardiogram as clinically warranted. Mosaic attenuation of the lungs could be seen in the setting of small vessel or small airway disease. Mild dependent atelectasis bilaterally. Dense consolidation and possible scarring with soft tissue thickening and bronchiectasis in the left lung apex. Overlying pleural calcifications. Underlying neoplastic process is not excluded on the basis of this study and correlation with any prior imaging is recommended. This can be further assessed with PET CT. Bronchitis. Opacified bronchi in the lower lobes may related to secretions/mucous plugging. Old granulomatous disease. Demineralization. Chronic deformity of the sternum without acute osseous injury at that site. Degenerative changes. Mild distention of the esophagus with fluid with moderate distention of the stomach. Question of some wall thickening along the proximal duodenum. A clinically for signs of gastritis/esophagitis or duodenitis. Please see the separately dictated CT of the abdomen and pelvis report. EXAM: CT ABDOMEN PELVIS WITH CONTRAST HISTORY: Syncope, elevated, lactic gases COMPARISON: None. TECHNIQUE: Serial axial images of the abdomen pelvis were performed after Omnipaque IV contrast was administered. FINDINGS: Please see report from CTA chest obtained at the same time for description of findings in the lower chest. Atherosclerotic plaque in the abdominal aorta and branches. The superior mesenteric artery is patent. The celiac artery is patent. The renal arteries are patent. The inferior mesenteric artery is patent. No acute process involving the liver, pancreas or spleen. No hydronephrosis. Simple right renal cyst. The adrenal glands are normal. There is question of mild wall thickening versus under distension at the gastroduodenal junction. Diverticulosis. No findings of acute diverticulitis. Suspected under distension of the proximal colon. No dilated loops of small bowel. The appendix is not identified. No pneumatosis. No portal venous gas or mesenteric venous gas. No acute process in the pelvis. Question of bladder prolapse or ureterocele. Degenerative changes to the spine, pelvis and hips IMPRESSION: Question of wall thickening at the gastroduodenal junction versus under distension. Correlate with endoscopy as warranted. Suspected under distension of the proximal colon versus colitis. Question of ureterocele or bladder prolapse. Clinical follow-up. Please see above description and additional findings. Review Review Statement: I have independently reviewed and interpreted the labs/EKGs/imaging that were ordered by the ER provider. I have reviewed all outside records that are available currently in our EMR including imaging/notes/labs from previous visits. Plan Reccomendations/Plan: 1. Syncope - CTA negative for PE. Orthostats negative. Echo performed. Tele. 2. Right apex consolidation/soft tissue thickening - Less likely pna given normal wbc count, no fever, no symptoms, incidental finding, f/u outpatient 3. Hx of bilateral PEs - Cont xarelto Today she is feeling well. Denies any deficits. No pre syncopal episodes. Vitals stable. Has been on tele overnight. Echo today overall unremarkable per Dr. Zina Walkre. We discussed her CTA findings of the right apex consolidation/soft tissue thickening. Seems less likely pneumonia given normal wbc count, no fever, and no respiratory symptoms. Advised her to have close f/u with pcp for further in vestigation to r/o worrisome etiology. Also her CT abd/pelvis showed questionable colitis. Patient denies abd pain, fever, diarrhea. We discussed findings supportive of gastritis, she states she does often have acid reflux and takes pepcid. We discussed adding prilosec, nexium, etc if needed for better symptom control. Overall patient has had a negative work up related to her syncopal event, could have been vasovagal related. Will send on 1 week holter to r/o arrhythmia not caught on tele here, f/u with pcp. 1. Syncope, possibly vasovagal 2. Right apex consolidation/soft tissue thickening 3. Hx of bilateral PEs 4. Acid reflux Additional Planning: Case discussed with ED Physician, Dr. Lucas. DVT Prophylaxis: Xarelto Advanced Care Plannin minutes spent discussing advance care planning. Disposition: Home Admit to: Obs Discussed Plan of Care with Dr. Bharath Walker. Review With Patient Reviewed with Patient and Family: Patient and family have been counseled on condition and care plan and have no immediate questions. I have personally discussed and reviewed the patient's visit/current labs/imaging/decision making with Dr. Bharath Walker, my supervising attending. Total number of minutes spent with patient [85] min. More than 50% of the time spent with this patient was devoted to counseling and coordination of care. Time of Admission:12/30/24 17:41 Time of Discharge: 12/31/24 1045 Discharge Plan Discharge Discharge Orders: Discharge Patient (ONCE); Ordered 12/31/24 Ordered By: CARINA OCHOA Activity Restrictions/Additional Instructions: DISCHARGE TO HOME DX: SYNCOPE HEART MONITOR F/U WITH PCP RETURN WITH WORSENING SYMPTOMS Instructions: Syncope (DC), Holter Monitor (GEN) Patient Disposition: HOME SELF-CARE Prescriptions: Continued Xarelto 15 mg tablet 15 mg PO DAILY Rx Instructions: must administer with evening meal colesevelam 625 mg tablet 625 mg PO BID Rx Instructions: one in the morning and another at noon Did you review [place] [facility] [employer] for ALL controlled substances?: Not Applicable Discussed opioids are addictive and Narcan is available by prescription or from pharmacy.: No Condition: Stable Referrals: DAWOOD BEASLEY [Primary Care Provider] - 01/03/25 9:40 am
--- NOTE | 2024-12-31 13:17 | ECHO2D ---
Date of Exam: 12/31/2024 Ordering Physician: ALLEY Room #: 121 Reason for Echo: SOB, CHEST PAIN, SYNCOPE, HX DVT, SYSTOLIC MURMUR M-Mode Normal Adult Results LV Dimensions Normal Adult Results AoV Opening excursions >1.6 1.4 LVEDD-base- 3.5-5.8 4.0 Ao root dimensions 2.0-3.7 2.6 LVESD-base- 3.1-4.6 L. Atrium dimensions 1.9-3.8 4.2 Post. Wall thickness 0.8-1.1 1.1 IV septum (thickness) 0.7-1.2 1.3 Post. Wall excursion 0.72-1.3 NORMAL Septal motion NORMAL Systolic motion R. Ventricular cavity 1.5-2.0 NORMAL LVEF 60% 70% Paradoxical septal wall motion NORMAL 2-D : 1. CALCIFIC AORTIC VALVE LEAFLET--ONE FIXED --SEPARATION OF AORTIC LEAFLETS NOTED 2. ALL OTHER VALVES --NORMAL 3. NORMAL LEFT VENTRICLE SIZE AND LEFT VENTRICLE CONTRACTILITY 4. NO EFFUSION--NO THROMBUS M-MODE: MV: NORMAL AV: CALCIFIC FIXED ONE CUSP--MAYBE MILD STENOSIS TV: NORMAL PV: NORMAL CHAMBER SIZE: ENLARGED LEFT ATRIAL CAVITY WALL MOTION: NORMAL PERICARDIUM: NORMAL INTERPRETATION: 1. LEFT VENTRICLE HYPERTROPHY WITH ENLARGED LEFT ATRIAL CAVITY 2. CALCIFIC AORTIC VALVE LEAFLETS--ONE CUSP, CALCIFIC --FIXED, MAYBE MILD STENOSIS 3. MITRAL VALVE AND TRICUSPID VALVES --NORMAL 4. NORMAL LEFT VENTRICLE SIZE AND LEFT VENTRICLE CONTRACTILITY MTDD
--- NOTE | 2025-01-17 14:39 | HOLTER-LT ---
PATIENT INFORMATION AND COMMENTS Attending Physician: Hospitalist--SOLO Flanagan/ PCP Ministerio Torrez Indications: syncope and collapse __ Patient Medications: colesevelam, Xarelto __ Pre-procedure Summary: Protocol: Standard Heart Rate Started: 12/31/2024 Minimum: 64 bpm Weight: 69.4 kg 153 lbs Ended: 01/06/2025 Maximum: 123 bpm Height: 62" Duration: 6 days/ 17 min/ 42 sec Average: 79 bpm _ INTERPRETATIONS/OBSERVATIONS: 1. Underlying rhythm: Sinus 2. Maximum sinus heart rate: 123 bpm, minimum sinus heart rate: 64 bpm, average heart rate: 79 bpm 3. Atrial Fibrillation burden: 0% 4. Atrial Flutter burden: 0% 5. Pauses greater than 2.5 seconds: 0 6. PVC's: 551 with 2 QRS forms; Rare PVC's 7. Infrequent PAC's-few nonsustained SVT noted, the longest: 12 and 18 beats SVT. Few 4 to 5 beats SVT noted 8. AV Block: none 9. Patient marker count: 2, with and without arrhythmia/ ectopy 10. Diary: included with patient markers. 11. Total monitoring time: 6 days (Send page 9 with report) MTDD
== END 2024-12-31 13:10 | disposition home or self-care (01) ==
LOC: ED 13:18 → MEDSURG B 13:18
PROVIDERS: ADMIT Hospitalist; ATTEND Physician Assistant